=== PATIENT | female | born 1960 | race Hispanic/Latino ===

== ENCOUNTER 2023-10-10 17:52 | Emergency (ER) | payer BC ==
[~2023-10-10] VITALS: Ht 154.9 cm; Wt 95.3 kg
[2023-10-10 19:23] VITALS: BP 151/64; PULSE 68; RESP 20; O2SAT 94
[2023-10-10] MEDS ORDERED: ACET-66 PO (19:30)
[2023-10-10] MEDS ORDERED: MELO-108 PO (19:30)
[2023-10-10] MEDS ORDERED: KETOROLAC 15MG/ML VIAL (15MG/ML) ONE (19:34)
[2023-10-10] MEDS: KETOROLAC 15MG/ML VIAL (15MG/ML) IM ONE (19:37)
[2023-10-10] MEDS: ACETAMINOPHEN 500 MG TABLET PO ONE (19:38)
== END 2023-10-11 02:39 | disposition home or self-care (01) ==
LOC: EDH 17:52
DX: S09.93XA Unspecified injury of face, initial encounter (principal); M25.461 Effusion, right knee; E78.00 Pure hypercholesterolemia, unspecified; I10 Essential (primary) hypertension; X58.XXXA Exposure to other specified factors, initial encounter; Y93.89 Activity, other specified; Y92.89 Other specified places as the place of occurrence of the external cause; Y99.8 Other external cause status
CPT/HCPCS: 99285; 70450; 73503; 73562; 70486; 96372; J1885